=== PATIENT | female | born 1970 | race Caucasian/White ===

== ENCOUNTER 2016-08-24 01:08 | Emergency (ER) | payer OTHER ==
[2016-08-24 03:14] VITALS: BP 124/51
== END 2016-08-24 03:14 | disposition home or self-care (01) ==
LOC: ED 01:08
DX: J45.901 Unspecified asthma with (acute) exacerbation (principal); J02.9 Acute pharyngitis, unspecified
CPT/HCPCS: J1885; J7512; J7613; J7644